=== PATIENT | male | born 1940 | race Caucasian/White ===

== ENCOUNTER 2018-06-21 07:38 | Observation (INO) | payer MEDICARE, OTHER ==
[2018-06-21] MEDS: DIAZEPAM 5 MG TAB PO (06:00)
[2018-06-21] MEDS: FAMOTIDINE 20 MG TAB PO (06:00)
[2018-06-21] MEDS: DIPHENHYDRAMINE 50 MG CAP PO (06:00)
[~2018-06-21 07:38] MED LIST: SOD CHLORIDE 0.45% 1,000 ML IV
[2018-06-21 08:23] LABS: ADD MAN DIFF? NO
[2018-06-21 08:25] LABS: WHITE BLOOD COUNT 6.4 10^3/ul (4.8-10.8)
[2018-06-21 08:25] LABS: BASOPHILS % 0.5 % (0.0-2.0); EOSINOPHILS # 0.1 10^3/ul (0.0-0.5); HEMOGLOBIN 13.7 g/dl (14.0-18.0); LYMPHOCYTES % 30.7 % (15.0-51.0); MEAN CORPUSCULAR HEMOGLOBIN 31.8 pg (29.0-33.0); MEAN CORPUSCULAR HGB CONC 35.1 g/dl (32.0-37.0); MEAN CORPUSCULAR VOLUME 90.5 fl (82.0-101.0); MEAN PLATELET VOLUME 8.7 fl (7.4-10.4); MONOCYTE # 0.6 10^3/ul (0.3-0.9); MONOCYTES % 9.7 % (0.0-11.0); NEUTROPHIL # 3.6 10^3/ul (1.6-7.5); NEUTROPHILS % 56.6 % (39.0-77.0); PLATELET COUNT 169 10^3/UL (140-415); RED BLOOD COUNT 4.31 10^6/ul (4.70-6.10); RED CELL DISTRIBUTION WIDTH 12.2 % (11.5-14.5)
[2018-06-21 08:42] LABS: ALANINE AMINOTRANSFERASE 236 IU/L (13-69); ALBUMIN 3.8 g/dl (3.3-4.9); ALBUMIN/GLOBULIN RATIO 1.31; ALKALINE PHOSPHATASE 221 IU/L (42-121); ANION GAP 8 (5-13); ASPARTATE AMINO TRANSFERASE 156 IU/L (15-46); BILIRUBIN,INDIRECT 0.5 mg/dl (0-1.1); BILIRUBIN,TOTAL 0.5 mg/dl (0.2-1.3); CALCIUM 9.1 mg/dl (8.4-10.2); CARBON DIOXIDE 23 mmol/L (21-31); CHLORIDE 111 mmol/L (97-110); CHOLESTEROL 198 mg/dl (100-200); CREATININE 0.71 mg/dl (0.61-1.24); GLUCOSE 105 mg/dl (70-220); POTASSIUM 3.5 mmol/L (3.5-5.1); SODIUM 142 mmol/L (135-144); TOTAL PROTEIN 6.7 g/dl (6.1-8.1); TRIGLYCERIDES 147 mg/dl (0-149)
[2018-06-21 08:44] LABS: INR 0.87; PROTIME 11.9 Sec (11.9-14.9); PT RATIO 0.9
[2018-06-21 08:45] LABS: PARTIAL THROMBOPLASTIN TIME 27.5 Sec (23.0-35.0)
[2018-06-21 08:48] LABS: BLOOD UREA NITROGEN 6 mg/dl (7-20)
[2018-06-21] MEDS ORDERED: LIDOCAINE 1% (MDV) 20 ML INJ (08:50)
[2018-06-21] MEDS ORDERED: IODIXANOL LOCM 100 ML BTL ×3 (08:50→10:46)
[2018-06-21] MEDS ORDERED: MIDAZOLAM 1 MG/ML 2 ML INJ (08:51)
[2018-06-21] MEDS ORDERED: HEPARIN 1000 UNITS/ML 10 ML INJ (08:51)
[2018-06-21] MEDS ORDERED: FENTAnyl 50 MCG/ML VIAL (08:52)
[2018-06-21] MEDS ORDERED: VERAPAMIL 5 MG INJ (08:52)
[2018-06-21] MEDS ORDERED: NITROGLYCERIN (IC) 100 MCG/ML INJ (08:52)
[2018-06-21] MEDS ORDERED: CLOPIDOGREL 75 MG TAB (10:51)
[2018-06-21] MEDS ORDERED: OXYCODONE/ACETAMINOPHEN (5/325) TAB PO (11:30)
[2018-06-21] MEDS ORDERED: AL HYDROX/MG HYDROX/SIMETH 30 ML CUP PO (11:30)
[2018-06-21] MEDS ORDERED: ONDANSETRON 4 MG INJ IV (11:30)
[2018-06-21] MEDS ORDERED: ACETAMINOPHEN 325 MG TAB PO (11:30)
[2018-06-21] MEDS: SOD CHLORIDE 0.9% 1,000 ML IV (14:00)
[2018-06-22 01:54] LABS: ADD UMIC YES; UR ASCORBIC ACID NEGATIVE (NEGATIVE); UR BILIRUBIN (Dip) NEGATIVE (NEGATIVE); UR BLOOD (Dip) 3+ mg/dL (NEGATIVE); UR CLARITY CLEAR (CLEAR); UR COLOR YELLOW (YELLOW); UR GLUCOSE (Dip) NEGATIVE (NEGATIVE); UR KETONES (Dip) NEGATIVE (NEGATIVE); UR LEUKOCYTE ESTERASE (Dip) NEGATIVE Leu/ul (NEGATIVE); UR NITRITE (Dip) NEGATIVE (NEGATIVE); UR RBC 11 /HPF (0-5); UR SPECIFIC GRAVITY (Dip) 1.018 (1.003-1.030); UR TOTAL PROTEIN (Dip) NEGATIVE (NEGATIVE); UR UROBILINOGEN (Dip) NEGATIVE (NEGATIVE); UR WBC 0 /HPF (0-5)
[2018-06-22] MEDS: ZOLPIDEM 5 MG TAB PO (03:04)
[2018-06-22 06:17] LABS: ADD MAN DIFF? NO
[2018-06-22 06:24] LABS: BASOPHILS % 0.4 % (0.0-2.0); EOSINOPHILS # 0.1 10^3/ul (0.0-0.5); EOSINOPHILS % 1.3 % (0.0-7.0); HEMATOCRIT 40.2 % (42.0-52.0); HEMOGLOBIN 14.2 g/dl (14.0-18.0); LYMPHOCYTES # 1.6 10^3/ul (0.8-2.9); MEAN CORPUSCULAR HEMOGLOBIN 31.6 pg (29.0-33.0); MEAN CORPUSCULAR HGB CONC 35.3 g/dl (32.0-37.0); MEAN CORPUSCULAR VOLUME 89.3 fl (82.0-101.0); MEAN PLATELET VOLUME 9.2 fl (7.4-10.4); MONOCYTE # 0.7 10^3/ul (0.3-0.9); MONOCYTES % 9.1 % (0.0-11.0); NEUTROPHIL # 5.2 10^3/ul (1.6-7.5); NEUTROPHILS % 67.8 % (39.0-77.0); PLATELET COUNT 163 10^3/UL (140-415); RED CELL DISTRIBUTION WIDTH 12.5 % (11.5-14.5)
[2018-06-22 06:24] LABS: WHITE BLOOD COUNT 7.6 10^3/ul (4.8-10.8)
[2018-06-22 06:45] LABS: ALANINE AMINOTRANSFERASE 165 IU/L (13-69); ALBUMIN 3.7 g/dl (3.3-4.9); ALBUMIN/GLOBULIN RATIO 1.27; ALKALINE PHOSPHATASE 208 IU/L (42-121); ANION GAP 12 (5-13); ASPARTATE AMINO TRANSFERASE 89 IU/L (15-46); BLOOD UREA NITROGEN 6 mg/dl (7-20); CALCIUM 9.2 mg/dl (8.4-10.2); CARBON DIOXIDE 25 mmol/L (21-31); CHLORIDE 104 mmol/L (97-110); CHOL/HDL RATIO 3.6 RATIO; CHOLESTEROL 190 mg/dl (100-200); CREATININE 0.74 mg/dl (0.61-1.24); GLUCOSE 92 mg/dl (70-220); HDL CHOLESTEROL 52 mg/dl (31-75); LDL CHOLESTEROL,CALCULATED 116 mg/dl; POTASSIUM 3.5 mmol/L (3.5-5.1); SODIUM 141 mmol/L (135-144); TOTAL PROTEIN 6.6 g/dl (6.1-8.1); TRIGLYCERIDES 110 mg/dl (0-149)
[2018-06-22] MEDS: predniSOLONE (3 MG/ML PO SYG) PO ×2 (09:00→10:03)
[2018-06-22] MEDS: CLOPIDOGREL 75 MG TAB PO (10:03)
[2018-06-22] MEDS: ASPIRIN (EC) 81 MG TAB PO (10:04)
[2018-06-22] MEDS: AMLODIPINE 5 MG TAB PO (10:04)
[2018-06-22] MEDS: METOPROLOL (XL) 25 MG TAB PO (10:04)
[2018-06-22] MEDS ORDERED: ALPRAZOLAM 0.5 MG TAB PO (21:00)
[2018-06-22] MEDS ORDERED: ATORVASTATIN 80 MG TAB PO (21:00)
== END 2018-06-22 15:00 | disposition left against medical advice (07) ==
LOC: SDS 07:38 → TEL 06-22 11:14 → SDS 07:38 → REC 11:10 → TEL 13:23
DX: I25.10 Atherosclerotic heart disease of native coronary artery without angina pectoris (principal); Z95.5 Presence of coronary angioplasty implant and graft; I10 Essential (primary) hypertension; E78.5 Hyperlipidemia, unspecified
CPT/HCPCS: 71045; 80053; 80061; 81001; 82465; 84443; 84478; 85025; 85610; 85730; 93005; 93458; 99217; G0378